=== PATIENT | female | born 1945 | race American Indian/Alaskan Native ===

== ENCOUNTER → 2017-10-27 | Emergency (ER) | payer OTHER ==
[~2017-10-27] VITALS: Ht 149.9 cm; Wt 79.8 kg
== END | disposition home or self-care (01) ==
LOC: ER 09:47
DX: K57.92 Diverticulitis of intestine, part unspecified, without perforation or abscess without bleeding (principal)

== ENCOUNTER 2018-01-31 10:10 | Outpatient (CLI) | payer OTHER | END 2018-01-31 10:18 | disposition home or self-care (01) | LOC: MAMO-SONO 10:10 | DX: Z12.31 Encounter for screening mammogram for malignant neoplasm of breast (principal); Z87.898 Personal history of other specified conditions; N64.59 Other signs and symptoms in breast; Z80.3 Family history of malignant neoplasm of breast ==

== ENCOUNTER 2019-06-13 08:51 | Outpatient (CLI) | payer OTHER | END 2019-06-13 09:04 | disposition home or self-care (01) | LOC: MAMO-SONO 08:51 | DX: Z12.31 Encounter for screening mammogram for malignant neoplasm of breast (principal); Z87.898 Personal history of other specified conditions ==